=== PATIENT | male | born 1935 | race Caucasian/White ===

== ENCOUNTER 2017-11-09 20:27 | Inpatient (IN) | payer MEDICARE, MEDICAID ==
[~2017-11-09] VITALS: Ht 172.7 cm; Wt 80.9 kg
[2017-11-09] MEDS ORDERED: morphine 4 MG/ML inj SYRINge IV ONE (20:40)
[2017-11-09] MEDS ORDERED: ondansetron/PF 4mg/2ml inj IV ONE (20:40)
[2017-11-09] MEDS ORDERED: labetalol 20mg/4ml (5mg/ml) syringe IV ONE (20:45)
[2017-11-09 20:58] LABS: BASOPHILS % (AUTO) 0.4 % (0-1); EOSINOPHILS # (AUTO) 0.1 X10'3 (0-0.9); EOSINOPHILS % (AUTO) 1.8 % (0-6); HEMATOCRIT 40.9 % (42.0-52.0); HEMOGLOBIN 13.7 g/dl (14.0-17.9); LYMPHOCYTES # (AUTO) 0.9 X10'3 (1.1-4.8); LYMPHOCYTES % (AUTO) 11.7 % (21-51); MEAN CORPUSCULAR HEMOGLOBIN 32.1 PG (27.0-31.0); MEAN CORPUSCULAR HGB CONC 33.6 % (33.0-36.5); MEAN CORPUSCULAR VOLUME 95.5 FL (78-98); MEAN PLATELET VOLUME 7.9 FL (7.4-10.4); MONOCYTES # (AUTO) 0.6 X10'3 (0-0.9); MONOCYTES % (AUTO) 7.1 % (2-12); NEUTROPHILS # (AUTO) 6.4 X10'3 (1.8-7.7); PLATELET COUNT 224 X10'3 (140-440); RED BLOOD COUNT 4.28 X10'6 (4.70-6.10); RED CELL DISTRIBUTION WIDTH 13.6 % (11.5-14.5); WHITE BLOOD COUNT 8.1 X10'3 (4.5-11.0)
[2017-11-09] MEDS: esmolol/sodium cl bag 250 ML IV SCH (21:09)
[2017-11-09 21:10] LABS: PARTIAL THROMBOPLASTIN TIME 27 SECONDS (22-32); PROTHROMBIN TIME 10.7 SECONDS (9.0-12.0)
[2017-11-09 21:14] LABS: ALBUMIN 3.6 G/DL (3.4-5.0); ALBUMIN/GLOBULIN RATIO 0.9 (1.1-1.5); ALKALINE PHOSPHATASE 115 IU/L (46-116); ANION GAP 8 (8-16); ASPARTATE AMINO TRANSFERASE 349 U/L (10-37); BILIRUBIN,TOTAL 1.5 MG/DL (0.1-1.0); BLOOD UREA NITROGEN 17 MG/DL (7-18); BUN/CREATININE RATIO 18.5 (5.4-32.0); CHLORIDE 105 MMOL/L (99-107); CREATININE 0.92 MG/DL (0.60-1.10); GLUCOSE 126 MG/DL (70-104); POTASSIUM 3.6 MMOL/L (3.5-5.1); SODIUM 143 MMOL/L (135-145); TOTAL CARBON DIOXIDE 30.1 MMOL/L (24-32); TOTAL PROTEIN 7.5 G/DL (6.4-8.2); eGFR 79 ML/MIN
[2017-11-09 21:40] LABS: ALANINE AMINOTRANSFERASE 155 U/L (12-78); LIPASE 8198 U/L (73-393)
[2017-11-09 22:24] LABS: CLARITY,URINE CLEAR (Clear); COLOR,URINE YELLOW (Yellow); GLUCOSE, URINE NEGATIVE (Neg); KETONES,URINE NEGATIVE (Neg); LEUKOCYTE ESTERASE ,URINE NEGATIVE (Neg); NITRITES, URINE NEGATIVE (Neg); OCCULT BLOOD,URINE NEGATIVE (Neg); PROTEIN,URINE 100 mg/dl (Neg)
[2017-11-09] MEDS ORDERED: hydrALAZINE 20mg/ml inj. IV ONE (22:25)
[2017-11-09 22:27] LABS: UA COLLECTION TYPE CLN CATCH MIDSTREAM
[2017-11-09 22:30] LABS: BACTERIA,URINE FEW /HPF (Neg); RBC,URINE 0-2 /HPF (0-2); SQUAMOUS EPITHELIAL CELL,UR FEW /LPF (FEW); WBC,URINE 0-4 /HPF (0-4)
[2017-11-09 22:31] LABS: MUCUS STRANDS FEW /LPF (Neg)
[2017-11-09] MEDS ORDERED: iohexol 350MG/ML 100ml bottle IV ONE (22:31)
[2017-11-09] MEDS ORDERED: DUTA0.5C14 (23:39)
[2017-11-09] MEDS ORDERED: ASPI-1053 PO (23:39)
[2017-11-09] MEDS ORDERED: HYDR-3965 PO (23:41)
[2017-11-09] MEDS ORDERED: CLOP75TA15 PO (23:41)
[2017-11-09] MEDS ORDERED: OXYB5TAB29 PO (23:44)
[2017-11-09] MEDS ORDERED: FLO0.4C PO (23:44)
[2017-11-09] MEDS ORDERED: TRAM50TA2 PO (23:44)
[2017-11-10] MEDS ORDERED: magnesium hydroxide 30ml (MOM) UD suspension PO PRN (00:10)
[2017-11-10] MEDS ORDERED: morphine 4 MG/ML inj SYRINge IV PRN ×2 (00:10)
[2017-11-10] MEDS ORDERED: mag hydrox/Alum hydrox/simeth 30ml oral suspension PO PRN (00:10)
[2017-11-10] MEDS ORDERED: ondansetron/PF 4mg/2ml inj IV PRN (00:10)
[2017-11-10] MEDS ORDERED: acetaminophen 325mg tablet PO PRN ×2 (00:10)
[2017-11-10] MEDS ORDERED: HYDROcodone/acetaminophen 5mg/325mg tablet PO PRN (00:10)
[2017-11-10] MEDS ORDERED: DEXL60CA3 PO (00:19)
[2017-11-10] MEDS ORDERED: PRAV20TA4 PO (00:19)
[2017-11-10 01:20] VITALS: BP 136/77
[2017-11-10] MEDS: normal saline 1000ml 1,000 ML IV SCH ×3 (01:27→22:05)
[2017-11-10] MEDS: HYDROcodone/acetaminophen 10/325mg tab PO PRN ×3 (01:28→19:12)
[2017-11-10] MEDS ORDERED: HYDR-568 PO (01:33)
[2017-11-10] MEDS ORDERED: NITR0.4T51 SL (01:36)
[2017-11-10 04:30] VITALS: BP 111/58
[2017-11-10] MEDS ORDERED: pneumococcal 23-VAL P-sac vacc 25 mcg/0.5ml vial IMVAC ONE (06:05)
[2017-11-10] MEDS: esmolol/sodium cl bag 250 ML IV SCH (07:02)
[2017-11-10 08:00] VITALS: BP 132/63
[2017-11-10] MEDS: clopidogrel 75mg tablet PO SCH (08:01)
[2017-11-10] MEDS: tamsulosin 0.4mg capsule PO SCH (08:01)
[2017-11-10] MEDS: aspirin 81mg tablet.DR PO SCH (08:01)
[2017-11-10] MEDS: oxybutynin 5mg tablet PO SCH ×2 (08:01→19:07)
[2017-11-10] MEDS: enoxaparin 40mg/0.4ml syringe SUBCUT SCH (08:04)
[2017-11-10 11:15] VITALS: BP 136/73
[2017-11-10 16:11] LABS: CHOLESTEROL 84 MG/DL (0-200); HDL CHOLESTEROL 58 MG/DL (35-60); LDL CHOLESTEROL 26 MG/DL (50-100); TRIGLYCERIDES 28 MG/DL (20-135)
[2017-11-10 16:52] LABS: CHOL/HDL RATIO 1.5 (0.00-4.99)
[2017-11-10 20:00] VITALS: BP 126/70
[2017-11-11] VITALS: BP 127/64
[2017-11-11] MEDS: HYDROcodone/acetaminophen 10/325mg tab PO PRN ×2 (04:47→17:48)
[2017-11-11 05:15] LABS: BASOPHILS % (AUTO) 0.3 % (0-1); EOSINOPHILS # (AUTO) 0.1 X10'3 (0-0.9); EOSINOPHILS % (AUTO) 1.4 % (0-6); HEMATOCRIT 36.9 % (42.0-52.0); HEMOGLOBIN 12.6 g/dl (14.0-17.9); LYMPHOCYTES # (AUTO) 0.5 X10'3 (1.1-4.8); MEAN PLATELET VOLUME 8.1 FL (7.4-10.4); MONOCYTES # (AUTO) 0.5 X10'3 (0-0.9); MONOCYTES % (AUTO) 8.8 % (2-12); NEUTROPHILS % (AUTO) 81.5 % (42-75); PLATELET COUNT 181 X10'3 (140-440); RED BLOOD COUNT 3.93 X10'6 (4.70-6.10); RED CELL DISTRIBUTION WIDTH 14.2 % (11.5-14.5); WHITE BLOOD COUNT 6.2 X10'3 (4.5-11.0)
[2017-11-11] MEDS: normal saline 1000ml 1,000 ML IV SCH ×4 (06:10→18:22)
[2017-11-11 06:17] LABS: ALBUMIN 2.8 G/DL (3.4-5.0); ANION GAP 8 (8-16); BLOOD UREA NITROGEN 9 MG/DL (7-18); BUN/CREATININE RATIO 10.1 (5.4-32.0); CALCIUM 8.3 MG/DL (8.5-10.1); CHLORIDE 105 MMOL/L (99-107); CHOL/HDL RATIO 1.9 (0.00-4.99); CHOLESTEROL 97 MG/DL (0-200); CREATININE 0.89 MG/DL (0.60-1.10); GLUCOSE 93 MG/DL (70-104); HDL CHOLESTEROL 51 MG/DL (35-60); LDL CHOLESTEROL 33 MG/DL (50-100); POTASSIUM 3.5 MMOL/L (3.5-5.1); SODIUM 140 MMOL/L (135-145); TOTAL CARBON DIOXIDE 26.7 MMOL/L (24-32); TRIGLYCERIDES 46 MG/DL (20-135); eGFR 82 ML/MIN
[2017-11-11 06:55] VITALS: BP 120/52
[2017-11-11] MEDS: clopidogrel 75mg tablet PO SCH (07:43)
[2017-11-11] MEDS: oxybutynin 5mg tablet PO SCH ×2 (07:44→19:11)
[2017-11-11] MEDS: aspirin 81mg tablet.DR PO SCH (07:45)
[2017-11-11] MEDS: tamsulosin 0.4mg capsule PO SCH (07:45)
[2017-11-11] MEDS: enoxaparin 40mg/0.4ml syringe SUBCUT SCH (07:46)
[2017-11-11 10:02] LABS: LIPASE 394 U/L (73-393)
[2017-11-11 11:21] VITALS: BP 152/73
[2017-11-11 19:00] VITALS: BP 161/80
[2017-11-11 19:38] VITALS: BP 150/64
[2017-11-11] MEDS ORDERED: atorvastatin 10mg tablet PO SCH (21:00)
[2017-11-11 23:47] VITALS: BP 146/81
[2017-11-12] MEDS: HYDROcodone/acetaminophen 10/325mg tab PO PRN ×2 (02:55→12:22)
[2017-11-12] MEDS: normal saline 1000ml 1,000 ML IV SCH ×2 (02:55→13:40)
[2017-11-12 05:21] LABS: BASOPHILS % (AUTO) 0.7 % (0-1); EOSINOPHILS # (AUTO) 0.2 X10'3 (0-0.9); EOSINOPHILS % (AUTO) 2.7 % (0-6); HEMATOCRIT 37.7 % (42.0-52.0); HEMOGLOBIN 12.8 g/dl (14.0-17.9); LYMPHOCYTES # (AUTO) 0.5 X10'3 (1.1-4.8); LYMPHOCYTES % (AUTO) 9.5 % (21-51); MEAN CORPUSCULAR HEMOGLOBIN 31.9 PG (27.0-31.0); MEAN CORPUSCULAR HGB CONC 33.9 % (33.0-36.5); MEAN CORPUSCULAR VOLUME 94.2 FL (78-98); MEAN PLATELET VOLUME 8.3 FL (7.4-10.4); MONOCYTES # (AUTO) 0.6 X10'3 (0-0.9); MONOCYTES % (AUTO) 11.3 % (2-12); NEUTROPHILS # (AUTO) 4.3 X10'3 (1.8-7.7); NEUTROPHILS % (AUTO) 75.8 % (42-75); PLATELET COUNT 192 X10'3 (140-440); RED BLOOD COUNT 4.01 X10'6 (4.70-6.10); RED CELL DISTRIBUTION WIDTH 13.8 % (11.5-14.5); WHITE BLOOD COUNT 5.7 X10'3 (4.5-11.0)
[2017-11-12 05:40] LABS: ALBUMIN 2.8 G/DL (3.4-5.0); ANION GAP 11 (8-16); BLOOD UREA NITROGEN 6 MG/DL (7-18); BUN/CREATININE RATIO 8.5 (5.4-32.0); CALCIUM 8.5 MG/DL (8.5-10.1); CHLORIDE 106 MMOL/L (99-107); CREATININE 0.71 MG/DL (0.60-1.10); GLUCOSE 97 MG/DL (70-104); LIPASE 155 U/L (73-393); POTASSIUM 3.1 MMOL/L (3.5-5.1); SODIUM 141 MMOL/L (135-145); TOTAL CARBON DIOXIDE 24.4 MMOL/L (24-32); eGFR > 90 ML/MIN
[2017-11-12 06:58] VITALS: BP 131/80
[2017-11-12] MEDS ORDERED: traMADol 50MG tablet PO PRN (08:15)
[2017-11-12] MEDS: aspirin 81mg tablet.DR PO SCH (08:34)
[2017-11-12] MEDS: clopidogrel 75mg tablet PO SCH (08:35)
[2017-11-12] MEDS: tamsulosin 0.4mg capsule PO SCH (08:35)
[2017-11-12] MEDS: oxybutynin 5mg tablet PO SCH (08:35)
[2017-11-12] MEDS: enoxaparin 40mg/0.4ml syringe SUBCUT SCH (08:36)
[2017-11-12] MEDS ORDERED: potassium Cl 40MEQ/NS 500ml 500 ML IV PRN ×2 (08:50)
[2017-11-12] MEDS ORDERED: magnesium Cl slow-release 64mg tablet PO PRN (08:50)
[2017-11-12] MEDS ORDERED: potassium Cl 20 mEq SR tablet PO PRN ×2 (08:50)
[2017-11-12 09:03] LABS: ALANINE AMINOTRANSFERASE 134 U/L (12-78); ALBUMIN/GLOBULIN RATIO 0.8 (1.1-1.5); ALKALINE PHOSPHATASE 138 IU/L (46-116); ASPARTATE AMINO TRANSFERASE 53 U/L (10-37); BILIRUBIN,DIRECT 0.6 MG/DL (0-0.3); BILIRUBIN,TOTAL 1.4 MG/DL (0.1-1.0); TOTAL PROTEIN 6.5 G/DL (6.4-8.2)
[2017-11-12 12:00] VITALS: BP 154/85
== END 2017-11-12 15:40 | disposition home or self-care (01) | DRG 439 ==
LOC: ER 20:27 → ED HOLD 11-10 00:10 → SUR 3N 11-10 01:00 → UNDODISIN 11-12 15:15
PROVIDERS: ADMIT Hospitalist; ATTEND Family Medicine
PROC: B32T1ZZ Computerized Tomography (CT Scan) of Left Pulmonary Artery using Low Osmolar Contrast (ICD-10-PCS; principal; 2017-11-09)
PROC: B3201ZZ Computerized Tomography (CT Scan) of Thoracic Aorta using Low Osmolar Contrast (ICD-10-PCS; 2017-11-09)
PROC: B32S1ZZ Computerized Tomography (CT Scan) of Right Pulmonary Artery using Low Osmolar Contrast (ICD-10-PCS; 2017-11-09)
DX: K85.90 Acute pancreatitis without necrosis or infection, unspecified (principal); J98.11 Atelectasis; I71.4 Abdominal aortic aneurysm, without rupture; D64.9 Anemia, unspecified; R74.0 Nonspecific elevation of levels of transaminase and lactic acid dehydrogenase [LDH]; E78.00 Pure hypercholesterolemia, unspecified; E87.6 Hypokalemia; G89.29 Other chronic pain; I25.10 Atherosclerotic heart disease of native coronary artery without angina pectoris; I25.2 Old myocardial infarction; Z95.1 Presence of aortocoronary bypass graft; Z88.1 Allergy status to other antibiotic agents; Z79.02 Long term (current) use of antithrombotics/antiplatelets; Z79.899 Other long term (current) drug therapy; Z87.891 Personal history of nicotine dependence; Z23 Encounter for immunization
CPT/HCPCS: 36415; 71045; 71275; 76700; 80048; 80053; 80061; 80076; 81001; 83690; 84484; 85025; 85610; 85730; 87070; 90732; 93005; 96374; 96375; 99291; J0360; J1650; J2270; J2405; J3490; J7030; Q9967

== ENCOUNTER 2018-06-01 01:21 | Inpatient (IN) | payer MEDICARE, MEDICAID | END 2018-06-04 16:00 | disposition home or self-care (01) | LOC: ER 01:21 → ED HOLD 04:41 → SUR 3N 05:10 | DX: K85.90 Acute pancreatitis without necrosis or infection, unspecified (principal); K83.09 Other cholangitis; I71.4 Abdominal aortic aneurysm, without rupture; I25.10 Atherosclerotic heart disease of native coronary artery without angina pectoris ==

== ENCOUNTER 2020-06-29 15:54 | Emergency (ER) | payer MEDICARE, MEDICAID ==
[~2020-06-29] VITALS: Ht 172.7 cm; Wt 79.5 kg
[~2020-06-29 15:54] MED LIST: ASPI-1053 PO; CLOP75TA15 PO; DEXL60CA3 PO; DUTA0.5C17; FLO0.4C PO; HYDR-4384 PO; NITR0.4T51 SL; OXYB5TAB29 PO; POTA10TA15 PO; TRAM50TA2 PO
[2020-06-29 17:07] LABS: BASOPHILS # (AUTO) 0.1 X10'3 (0-0.2); BASOPHILS % (AUTO) 1.6 % (0-1); EOSINOPHILS # (AUTO) 0.2 X10'3 (0-0.9); EOSINOPHILS % (AUTO) 3.3 % (0-6); HEMOGLOBIN 14.7 g/dl (14.0-17.9); LYMPHOCYTES # (AUTO) 1.4 X10'3 (1.1-4.8); MEAN CORPUSCULAR HEMOGLOBIN 31.2 PG (27.0-31.0); MEAN CORPUSCULAR HGB CONC 33.5 g/dL (33.0-36.5); MEAN CORPUSCULAR VOLUME 93.2 FL (78-98); MEAN PLATELET VOLUME 7.7 FL (7.4-10.4); MONOCYTES # (AUTO) 0.6 X10'3 (0-0.9); MONOCYTES % (AUTO) 9.4 % (2-12); NEUTROPHILS # (AUTO) 4.3 X10'3 (1.8-7.7); NEUTROPHILS % (AUTO) 64.7 % (42-75); PLATELET COUNT 241 X10'3 (140-440); RED BLOOD COUNT 4.72 X10'6 (4.70-6.10); WHITE BLOOD COUNT 6.7 X10'3 (4.5-11.0)
[2020-06-29 17:10] LABS: ALANINE AMINOTRANSFERASE 24 U/L (12-78); ALBUMIN 3.5 G/DL (3.4-5.0); ALBUMIN/GLOBULIN RATIO 0.9 (1.1-1.5); ALKALINE PHOSPHATASE 57 IU/L (46-116); ANION GAP 7 (8-16); ASPARTATE AMINO TRANSFERASE 18 U/L (10-37); BILIRUBIN,TOTAL 0.8 MG/DL (0.1-1.0); BLOOD UREA NITROGEN 13 MG/DL (7-18); BUN/CREATININE RATIO 13.5 (5.4-32.0); CALCIUM 9.5 MG/DL (8.5-10.1); CHLORIDE 103 MMOL/L (99-107); CREATININE 0.96 MG/DL (0.60-1.10); GLUCOSE 99 MG/DL (70-104); SODIUM 137 MMOL/L (135-145); TOTAL CARBON DIOXIDE 27.1 MMOL/L (24-32); TOTAL PROTEIN 7.5 G/DL (6.4-8.2); eGFR 75 ML/MIN
[2020-06-29 17:50] VITALS: BP 153/86
== END 2020-06-29 17:53 | disposition home or self-care (01) ==
LOC: ER 15:55
DX: R07.89 Other chest pain (principal); M54.89 Other dorsalgia; I25.10 Atherosclerotic heart disease of native coronary artery without angina pectoris; E78.00 Pure hypercholesterolemia, unspecified; Z98.890 Other specified postprocedural states; Z88.1 Allergy status to other antibiotic agents; Z79.899 Other long term (current) drug therapy
CPT/HCPCS: 36415; 71045; 80053; 83880; 84484; 85025; 93005; 99285

== ENCOUNTER 2023-04-05 12:00 | Inpatient (IN) | payer BC, MEDICAID ==
[~2023-04-05] VITALS: Ht 172.7 cm; Wt 72.1 kg
[~2023-04-05 12:00] MED LIST changes: -DUTA0.5C17; +DUTA0.5C36
[2023-04-05] MEDS ORDERED: aspirin 81mg, enteric-coated 1 TAB TABLET.DR PO ONE (12:05)
[2023-04-05 12:33] LABS: BASOPHILS # (AUTO) 0.1 X10'3 (0-0.2); BASOPHILS % (AUTO) 1.3 % (0-1); EOSINOPHILS # (AUTO) 0.2 X10'3 (0-0.9); HEMOGLOBIN 13.9 g/dl (14.0-17.9); LYMPHOCYTES # (AUTO) 1.2 X10'3 (1.1-4.8); LYMPHOCYTES % (AUTO) 15.5 % (21-51); MEAN CORPUSCULAR HEMOGLOBIN 31.3 PG (27.0-31.0); MEAN PLATELET VOLUME 8.6 FL (7.4-10.4); MONOCYTES # (AUTO) 0.7 X10'3 (0-0.9); MONOCYTES % (AUTO) 9.1 % (2-12); NEUTROPHILS # (AUTO) 5.6 X10'3 (1.8-7.7); NEUTROPHILS % (AUTO) 72.1 % (42-75); PLATELET COUNT 234 X10'3 (140-440); RED BLOOD COUNT 4.42 X10'6 (4.70-6.10); RED CELL DISTRIBUTION WIDTH 15.1 % (11.5-14.5); WHITE BLOOD COUNT 7.7 X10'3 (4.5-11.0)
[2023-04-05 13:18] LABS: ALANINE AMINOTRANSFERASE 12 U/L (12-78); ALBUMIN 3.6 G/DL (3.4-5.0); ALKALINE PHOSPHATASE 66 IU/L (46-116); ANION GAP 11 (8-16); ASPARTATE AMINO TRANSFERASE 16 U/L (10-37); BILIRUBIN,TOTAL 0.6 MG/DL (0.1-1.0); BLOOD UREA NITROGEN 13 MG/DL (7-18); BUN/CREATININE RATIO 10.9 (10.0-20.0); CALCIUM 9.1 MG/DL (8.5-10.1); CHLORIDE 102 MMOL/L (99-107); CREATININE 1.19 MG/DL (0.60-1.10); GLUCOSE 117 MG/DL (70-104); POTASSIUM 3.8 MMOL/L (3.5-5.1); SODIUM 136 MMOL/L (135-145); TOTAL CARBON DIOXIDE 23.5 MMOL/L (24-32); TOTAL PROTEIN 7.3 G/DL (6.4-8.2); eCRCL 42 ML/MIN; eGFR 58 ML/MIN
[2023-04-05 13:25] LABS: PRO BRAIN NATRIURETIC PEPTIDE 1346 PG/ML (0-450)
[2023-04-05] MEDS ORDERED: ondansetron/PF 4mg/2ml inj IV PRN (14:20)
[2023-04-05] MEDS ORDERED: HYDROcodone/acetaminophen 10/325mg tab PO PRN (14:20)
[2023-04-05] MEDS ORDERED: potassium Cl 40MEQ/1/2NS 520ml 520 ML IV PRN (14:20)
[2023-04-05] MEDS ORDERED: potassium Cl 20 mEq SR tablet PO PRN ×2 (14:20)
[2023-04-05] MEDS ORDERED: HYDROcodone/acetaminophen 5mg/325mg tablet PO PRN (14:20)
[2023-04-05] MEDS ORDERED: magnesium 2GM in 50ml NS 50 ML IV PRN (14:20)
[2023-04-05] MEDS ORDERED: acetaminophen 325mg tablet PO PRN ×2 (14:20)
[2023-04-05] MEDS ORDERED: magnesium Cl slow-release 64mg tablet PO PRN (14:20)
[2023-04-05] MEDS ORDERED: magnesium 4gm in 100ml NS 100 ML IV PRN (14:20)
[2023-04-05] MEDS ORDERED: morphine 2 MG/ML inj. syringe IV PRN ×2 (14:20)
--- NOTE | 2023-04-05 16:09 | NUR ---
ULTRASOUND IN WITH PATIENT. PT IS RESTING COMFORTABLY WITH NO COMPLAINTS AT THIS TIME. WAITING ON ROOM FOR HIS ADMISSION.
[2023-04-05] MEDS ORDERED: LOSA25TA41 PO (17:14)
[2023-04-05] MEDS ORDERED: OMEP20CA16 PO (17:14)
[2023-04-05] MEDS ORDERED: FINA5TAB11 PO (17:14)
[2023-04-05] MEDS ORDERED: enoxaparin 40mg/0.4ml syringe SQ SCH (20:00)
[2023-04-05 21:45] VITALS: BP 160/86; PULSE 88; RESP 18; TEMP 97.7; O2SAT 95
[2023-04-05 22:00] VITALS: BP 161/80; PULSE 62; RESP 19; TEMP 97.6; O2SAT 97
[2023-04-06] VITALS (10 sets, daily range): BP systolic 127–152; BP diastolic 68–86; PULSE 64–88; RESP 16–21; TEMP 97–97.6; O2SAT 96–99
[2023-04-06 07:08] LABS: BASOPHILS # (AUTO) 0.1 X10'3 (0-0.2); EOSINOPHILS # (AUTO) 0.3 X10'3 (0-0.9); EOSINOPHILS % (AUTO) 4.4 % (0-6); HEMATOCRIT 40.6 % (42.0-52.0); HEMOGLOBIN 13.5 g/dl (14.0-17.9); LYMPHOCYTES # (AUTO) 1.4 X10'3 (1.1-4.8); LYMPHOCYTES % (AUTO) 21.9 % (21-51); MEAN CORPUSCULAR HEMOGLOBIN 31.1 PG (27.0-31.0); MEAN CORPUSCULAR HGB CONC 33.2 g/dL (33.0-36.5); MEAN CORPUSCULAR VOLUME 93.7 FL (78-98); MEAN PLATELET VOLUME 8.3 FL (7.4-10.4); MONOCYTES # (AUTO) 0.6 X10'3 (0-0.9); NEUTROPHILS # (AUTO) 3.9 X10'3 (1.8-7.7); NEUTROPHILS % (AUTO) 62.7 % (42-75); PLATELET COUNT 209 X10'3 (140-440); RED BLOOD COUNT 4.34 X10'6 (4.70-6.10); RED CELL DISTRIBUTION WIDTH 14.7 % (11.5-14.5); WHITE BLOOD COUNT 6.2 X10'3 (4.5-11.0)
[2023-04-06 07:22] LABS: ALANINE AMINOTRANSFERASE 16 U/L (12-78); ALBUMIN/GLOBULIN RATIO 0.9 (1.1-1.5); ALKALINE PHOSPHATASE 61 IU/L (46-116); ANION GAP 6 (8-16); ASPARTATE AMINO TRANSFERASE 18 U/L (10-37); BILIRUBIN,TOTAL 1.3 MG/DL (0.1-1.0); BLOOD UREA NITROGEN 9 MG/DL (7-18); BUN/CREATININE RATIO 8.7 (10.0-20.0); CALCIUM 8.9 MG/DL (8.5-10.1); CHLORIDE 104 MMOL/L (99-107); CREATININE 1.03 MG/DL (0.60-1.10); GLUCOSE 94 MG/DL (70-104); POTASSIUM 3.8 MMOL/L (3.5-5.1); SODIUM 139 MMOL/L (135-145); TOTAL CARBON DIOXIDE 29.4 MMOL/L (24-32); TOTAL PROTEIN 6.5 G/DL (6.4-8.2); eCRCL 51 ML/MIN; eGFR 69 ML/MIN
[2023-04-06] MEDS ORDERED: pantoprazole 40mg Tablet.DR PO SCH (08:00)
[2023-04-06] MEDS ORDERED: losartan 25mg tablet PO SCH (08:00)
[2023-04-06] MEDS ORDERED: finasteride 5mg tablet PO SCH (08:00)
[2023-04-06] MEDS ORDERED: tamsulosin 0.4mg capsule PO SCH (08:00)
[2023-04-06] MEDS ORDERED: clopidogrel 75mg tablet PO SCH (08:00)
[2023-04-06] MEDS ORDERED: OXYBUTYNIN CHLORIDE 5 MG PO SCH (08:00)
[2023-04-06] MEDS ORDERED: regadenoson 0.4mg/5ml syringe IV ONE (09:35)
[2023-04-06] MEDS ORDERED: aminophylline inj. 0 ML IV ONE (09:43)
--- NOTE | 2023-04-06 13:25 | NUR ---
Discharge instructions discussed with patient. All medications and follow up appointments discussed. All questions answered. Pt states he understands all instructions. 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 Pt will leave unit via wheelchair to a private car with family.
== END 2023-04-06 13:45 | disposition home or self-care (01) | DRG 313 ==
LOC: ER 12:00 → ED HOLD 14:32 → PCU 3S 21:45
PROVIDERS: ADMIT Internal Medicine; ATTEND Internal Medicine
PROC: 4A02XM4 Measurement of Cardiac Total Activity, External Approach (ICD-10-PCS; principal; 2023-04-06)
PROC: 3E073KZ Introduction of Other Diagnostic Substance into Coronary Artery, Percutaneous Approach (ICD-10-PCS; 2023-04-06)
DX: R07.89 Other chest pain (principal); I25.10 Atherosclerotic heart disease of native coronary artery without angina pectoris; E78.00 Pure hypercholesterolemia, unspecified; I50.9 Heart failure, unspecified; I25.2 Old myocardial infarction; Z88.0 Allergy status to penicillin; Z79.899 Other long term (current) drug therapy; Z95.1 Presence of aortocoronary bypass graft
CPT/HCPCS: 36415; 71045; 78452; 80053; 83735; 83880; 84484; 85025; 87081; 87811; 93017; 93306; 97161; 97530; 97535; 99285; A9500; J0280; J1650; J2785

== ENCOUNTER 2024-08-08 03:02 | Emergency (ER) | payer BC, MEDICAID ==
[~2024-08-08] VITALS: Ht 170.2 cm; Wt 70.9 kg
[~2024-08-08 03:02] MED LIST changes: -CLOP75TA15 PO; +CLOP75TA34 PO; -DEXL60CA3 PO; -DUTA0.5C36; +FINA5TAB11 PO; +FURO-150 PO; -HYDR-4384 PO; +ISOS30TA84 PO; +LOP25T PO; +LOSA50TA64 PO; +OMEP20CA16 PO; +OXYB10TA30 PO; -OXYB5TAB29 PO; -POTA10TA15 PO; +ROSU20TA98 PO; -TRAM50TA2 PO
[2024-08-08 03:43] LABS: BASOPHILS % (AUTO) 0.5 % (0-1); EOSINOPHILS % (AUTO) 0.1 % (0-6); HEMATOCRIT 33.2 % (42.0-52.0); HEMOGLOBIN 11.3 g/dl (14.0-17.9); LYMPHOCYTES # (AUTO) 0.4 X10'3 (1.1-4.8); LYMPHOCYTES % (AUTO) 3.7 % (21-51); MEAN CORPUSCULAR HEMOGLOBIN 31.5 PG (27.0-31.0); MEAN CORPUSCULAR HGB CONC 34.2 g/dL (33.0-36.5); MEAN CORPUSCULAR VOLUME 92.4 FL (78-98); MEAN PLATELET VOLUME 7.9 FL (7.4-10.4); MONOCYTES # (AUTO) 0.8 X10'3 (0-0.9); MONOCYTES % (AUTO) 7.8 % (2-12); NEUTROPHILS # (AUTO) 8.4 X10'3 (1.8-7.7); NEUTROPHILS % (AUTO) 87.9 % (42-75); PLATELET COUNT 243 X10'3 (140-440); RED BLOOD COUNT 3.59 X10'6 (4.70-6.10); WHITE BLOOD COUNT 9.6 X10'3 (4.5-11.0)
[2024-08-08 04:06] LABS: ALBUMIN 2.5 G/DL (3.4-5.0); BLOOD UREA NITROGEN 12 MG/DL (7-18); CALCIUM 8.7 MG/DL (8.5-10.1); GLUCOSE 143 MG/DL (70-104); PRO BRAIN NATRIURETIC PEPTIDE 3384 PG/ML (0-450); SODIUM 139 MMOL/L (135-145); eCRCL 50 ML/MIN; eGFR 71 ML/MIN
[2024-08-08 04:08] LABS: ANION GAP 7 (8-16); CHLORIDE 104 MMOL/L (99-107)
[2024-08-08 04:09] LABS: POTASSIUM 2.8 MMOL/L (3.5-5.1)
[2024-08-08] MEDS: pantoprazole 40 MG vial IV ONE (04:21)
[2024-08-08] MEDS: famotidine/PF 10 mg/ml inj IV ONE (04:22)
[2024-08-08] MEDS: LIDOcaine 2% Viscous 15ml cup MM ONE (04:22)
[2024-08-08] MEDS: mag hydrox/Alum hydrox/simeth 30ml oral suspension PO ONE (04:22)
[2024-08-08] MEDS: ondansetron/PF 4mg/2ml inj IV ONE (04:35)
[2024-08-08] MEDS: potassium Cl 20 mEq SR tablet PO STA (04:36)
[2024-08-08] MEDS ORDERED: PANT-47 PO (05:49)
[2024-08-08] MEDS ORDERED: POTA-207 PO (06:01)
[2024-08-08 06:42] VITALS: BP 116/55; PULSE 73; RESP 16; TEMP 99.5; O2SAT 98
== END 2024-08-08 06:49 | disposition home or self-care (01) ==
LOC: ER 03:02
DX: K29.60 Other gastritis without bleeding (principal); E87.6 Hypokalemia; I25.10 Atherosclerotic heart disease of native coronary artery without angina pectoris; E78.00 Pure hypercholesterolemia, unspecified; I25.2 Old myocardial infarction; Z88.0 Allergy status to penicillin; Z79.899 Other long term (current) drug therapy; Z95.0 Presence of cardiac pacemaker; Z95.1 Presence of aortocoronary bypass graft
CPT/HCPCS: 36415; 71045; 80048; 83880; 84484; 85025; 93005; 96365; 96375; 99285; J2405; J2470; J3490

== ENCOUNTER 2025-01-04 16:59 | Inpatient (IN) | payer BC, MEDICAID ==
[~2025-01-04] VITALS: Ht 167.6 cm; Wt 65.9 kg
[~2025-01-04 16:59] MED LIST changes: -FLO0.4C PO; -FURO-150 PO; -OMEP20CA16 PO; -OXYB10TA30 PO; +PANT-47 PO; -ROSU20TA98 PO; +TAMS-55 PO
--- NOTE | 2025-01-04 17:53 | Physician Documentation ---
History of Present Illness General Chief Complaint: Mechanical Fall Stated Complaint: BACK PAIN Time Seen by MD: 17:28 Primary Medical Doctor: Dr. Melendez History of Present Illness Initial Comments The patient is an 89-year-old male who has chronic low back pain who takes [place] for his chronic low back pain presents with right-sided low back pain. Patient states he was driving in the car today around noon and he developed tingling in both legs as well as pain that radiated down his right leg he states the pain is worse when with movement it is similar to pain he has had in the past. The patient states he has difficulty ambulating secondary to the pain. The patient's pain use stating it is 10/10 sharp and radiates down his left leg he also states he has had numbness and tingling to both legs. Patient denies any bowel or bladder issues and denies any recent trauma. He states he has a history of spinal stenosis. His symptoms are moderate and persistent he takes [place] he believes 09/14/2024 chronically for his back pain. The patient states he fell at home several hours after the pain started he denies any head strike. Medication Reconciliation Allergies: Coded Allergies: amoxicillin (Verified Allergy, Unknown, RASH, 01/04/25) Scheduled Clopidogrel Bisulfate (Clopidogrel), 75 MG PO DAILY Finasteride (Finasteride), 1 TAB PO DAILY, (Reported) Isosorbide Mononitrate (Isosorbide Mononitrate Er), 90 MG PO DAILY Metoprolol Tartrate* (Lopressor tablet*), 25 MG PO Q12H Omeprazole (Omeprazole), 1 CAP PO DAILY, (Reported) Oxybutynin Chloride (Ditropan Xl), 1 TAB PO DAILY, (Reported) Tamsulosin Hcl* (Flomax*), 2 CAP PO DAILY, (Reported) Scheduled PRN Nitroglycerin SL* (Nitrostat SL*), 1 TAB SL Q5MIN PRN for Chest pain Q5min PRNx3-call MD, (Reported) Miscellaneous Medications Aspirin (Keren Chewable), 81 MG PO, (Reported) Discontinued Medications Losartan Potassium (Losartan Potassium), 50 MG PO DAILY Discontinued Reason: patient no longer taking Pantoprazole Sodium (PROTONIX tablet), 1 TAB PO DAILY Discontinued Reason: patient no longer taking Past Medical History Past Medical History: *CARDIOVASCULAR*, Coronary Artery Disease, High Cholesterol, Myocardial Infarction Past Surgical History: angioplasty, coronary bypass surgery, pacemaker Other Past Surgical History: Aortic aneurysm surgery (April 2022) Review of Systems All Other Systems at this time: Reviewed and Negative Physical Exam Physical Exam Vital Signs: Temperature: 98.1, Source: Oral, Heart Rate: 66, Respiratory Rate: 14, BP: 136/65, Pulse Oximetry: 96, Weight: 65.910 Oxygen Flow Rate: 0 Physical Exam VITALS: Reviewed and as above. GENERAL: Alert, no apparent distress. HEENT: Normocephalic, atraumatic, PERRL, EOMI, dry mucosa, no erythema RESPIRATORY: Lungs clear, normal breath sounds, no respiratory distress. CHEST: No accessory muscle use, no retractions CV: Regular rate, rhythm, no edema, no murmur, No: JVD GI: Soft, non-tender, bowels sounds present, no rebound, guarding, or rigidity BACK: No CVA tenderness, or swelling MUSCULOSKELETAL: The patient is able to lift his right leg off of the bed he does have slightly decreased strength in the right leg he has 4+ out of five strength in the right lower extremity there was no deficits appreciated in his upper extremities both extremities are sensate SKIN: Warm and dry, no rash NEURO: Oriented x4, has a above patient has 4/5 strength in the right lower ext remity he has pain with range of motion of the right hip PSYCH: Normal mood and affect, no agitation Progress Progress Note 1829: Patient report was received from Dr. Bryant. Patient examined. Reviewed CT results with patient. He complains of pain. Takes Groveland at home. States he has been taking it for over 20 years. He has not received any since he been here. A dose of Groveland 10/325 was ordered. After he receives the [place] we will attempt to gait test. If he is unable to ambulate he will need a lumbar spine MRI. 1939: PATIENT UP AND AMBULATORY WITHOUT ASSISTANCE. REPORTS BACK PAIN HAS SIG NIFICANTLY IMPROVED. 1754: Per nursing when patient came back from bathroom he was unable to ambulate and needed significant assistance to return to bed. Now states that he can't ambulate. Appreciates that this is an acute decompensation of his chronic back pain. States that it acutely worsened this AM. Pain radiates down both legs. No incontinence or urinary retention. Per Dr. Bryant if patient is unable to ambulate will require Lumbar Spine MRI. Ordered. Given his acute weakness he will be admitted for further eval and mgt. Case discussed with Dr. Mcmullen (machinist 2nd shift sup physician) Results/Orders Results/Orders Orders - SHAILESH BRYANT MD Ct Lumbar Spine (01/04/25 17:28) Completed Orders - SHAILESH BRYANT MD Ct Lumbar Spine (01/04/25 17:28) Vital Signs 01/04/25 01/04/25 01/04/25 01/04/25 17:05 17:22 18:38 19:13 Temp 98.1 Pulse 66 66 62 Resp 14 14 12 13 B/P (MAP) 136/65 136/65 (88) 105/54 (71) Pulse Ox 96 96 95 O2 Flow Rate 0 0 01/04/25 01/04/25 19:15 20:09 Pulse 60 Resp 18 12 B/P (MAP) 132/76 (94) Pulse Ox 98 Laboratory Tests Test 01/04/25 20:45 White Blood Count 7.2 Red Blood Count 3.72 L Hemoglobin 11.6 L Hematocrit 34.6 L Mean Corpuscular Volume 93.1 Mean Corpuscular Hemoglobin 31.1 H Mean Corpuscular Hemoglobin Concent 33.4 Red Cell Distribution Width 15.0 H Platelet Count 163 Mean Platelet Volume 8.1 Neutrophils (%) (Auto) 62.6 Lymphocytes (%) (Auto) 24.7 Monocytes (%) (Auto) 9.5 Eosinophils (%) (Auto) 2.2 Basophils (%) (Auto) 1.0 Neutrophils # (Auto) 4.5 Lymphocytes # (Auto) 1.8 Monocytes # (Auto) 0.7 Eosinophils # (Auto) 0.2 Basophils # (Auto) 0.1 CBC Comment Sodium Level 144 Potassium Level 4.1 Chloride Level 109 H Carbon Dioxide Level 26.4 Anion Gap 9 Blood Urea Nitrogen 17 Creatinine 1.01 Estimated GFR/1.73 m2 70 BUN/Creatinine Ratio 16.8 Glucose Level 102 Hemoglobin A1c 5.6 Calcium Level 8.5 Albumin 2.9 L Triglycerides Level 174 H Cholesterol Level 143 LDL Cholesterol 67 HDL Cholesterol 47 Cholesterol/HDL Ratio 3.0 Chemistry Comments EKG/XRAY/CT/US/VASC/MRI Chest X-Ray : Additional Comments Patient: FISH,MINAL R Medical Record: [id number] [facility] : 1935, Age: 89 Sex: Male Location: [address] Patient Status: ADM IN Service Date/Time: 01/05/25/ Ordering Physician: GRACIELA VILLALTA DO Exam: CHEST,SINGLE VIEW CHEST RADIOGRAPH Indication: weakness/pacemaker Technique: Single frontal view of the chest was obtained COMPARISON: DI CHEST,SINGLE VIEW on DOS: 09/26/24, DI CHEST,SINGLE VIEW on DOS: 08/08/24, DI CHEST,SINGLE VIEW on DOS: 06/21/24, DI CHEST,SINGLE VIEW on DOS: 03/22/24, DI CHEST,SINGLE VIEW on DOS: 04/05/23 FINDINGS: Lines and Tubes: None. Left anterior chest wall cardiac pacing device. Lungs: Clear Pleura: No effusion. No pneumothorax. Cardiomediastinal contours: Unremarkable status post median sternotomy. Surgical clips noted. Bones: Unremarkable IMPRESSION: 1. No acute disease. Electronically Signed by:RAFFI LOPEZ MD Date & Time: 01/05/25 104 Dictated by: RAFFI LOPEZ MD Dictation date and time: 01/05/25 104 Primary Care Provider: NO PRIMARY CARE PROVIDER cc: GRACIELA IVLLALTA DO ~ CT : Impression Patient: MINAL WHITTEN Medical Record: [id number] [facility] : 1935, Age: 89 Sex: Male Location: ER Patient Status: REG ER Service Date/Time: 01/04/251727 Ordering Physician: SHAILESH BRYANT MD Exam: CT LUMBAR SPINE CT CT LUMBAR SPINE Date: 01/04/2025 05:33 PM History: back pain Comparison: CT CT ABDOMEN PELVIS on DOS: 09/26/24, CT ABDOMEN PELVIS on DOS: 06/01/18 TECHNIQUE: Multiple axial CT images of the lumbosacral spine were obtained using bone algorithm. Axial and coronal reformatting was done. Bone and soft tissue windows were reviewed. Radiation Dose Information: CT Dose: CTDI volume is 19 mGy. Dose-length product is 543 mGy*cm FINDINGS: No CT evidence of definite acute fracture, spinal dislocation, or significant appearing acute subluxation is seen. There is grade 1 anterolisthesis of L3 on L4 secondary to facet arthropathy. The visualized paraspinal soft tissues are grossly unremarkable. Severe degenerative changes throughout the lumbar spine. Prominent disc osteophyte complex at L3-L4 causing at least moderate to severe central canal stenosis and at least mild bilateral neural foraminal narrowing. Prominent disc osteophyte complex at L4-5 causing at least mild central canal stenosis and at least moderate bilateral neural foraminal narrowing Partially visualized is an aortic bi-iliac stent graft. IMPRESSION: 1. No definite CT evidence of acute fracture or dislocation of the bony lumbar spine. 2. Prominent disc osteophyte complex at L3-L4 causing at least moderate to severe central canal stenosis and at least mild bilateral neural foraminal narrowing. Consider MRI lumbar spine for further evaluation. 3. Prominent disc osteophyte complex at L4-5 causing at least mild central canal stenosis and at least moderate bilateral neural foraminal narrowing. 4. Grade 1 anterolisthesis of L3 on L4 secondary to facet arthropathy. All CT scans at this medical facility are performed using dose modulation techniques as appropriate to a performed exam including the following: Automated exposure control was utilized; adjustment of the MA and/or KV according to shelley ent size; and use of iterative reconstruction technique. Electronically Signed by:LIBERTY LAMBERT MD Date & Time: 01/04/251804 Dictated by: LIBERTY LAMBERT MD Dictation date and time: 01/04/251804 Primary Care Provider: NO PRIMARY CARE PROVIDER cc: SHAILESH BRYANT MD ~ Medical Decision Making Findings Patient presents for back pain. He has had back pain for many years and has known lumbar stenosis. He has no high-risk features such as incontinence or urinary retention. No current clinical suspicion for acute neurologic emergency. He was given [place] 10. Unable to ambulate and pain acutely worse. MRI ordered. Given his acute weakness, unable to ambulate an MRI was ordered and he will be admitted for further evaluation/management and physical therapy eval and treat. Departure Disposition: 09 ADMITTED INPATIENT Admitted to Inpatient Unit: to hospitalist Admission Level of Care: Med/Surg Impression: Primary Impression: Back pain Qualified Codes: M54.42 - Lumbago with sciatica, left side; M54.41 - Lumbago with sciatica, right side; G89.29 - Other chronic pain Additional Impression: Weakness Condition: Stable Discharge Instructions: Acute Back Pain, Adult Additional Instructions: CONTINUE TO TAKE YOUR NORCO PRESCRIBED. FOLLOW UP WITH YOUR PRIMARY CARE PROVIDER. RETURN FOR ANY NEW OR WORSENING SYMPTOMS. Recommend that you do not drive while taking [place]. Referrals: NO PRIMARY CARE PROVIDER (PCP) Education Educated: Patient Educated regarding: diagnosis, treatment, need for follow up Signature Scribe Signature: No scribe Attestation: The note accurately reflects work and decisions made by me.Deidre James NP 01/04/25 23:00 SHAILESH BRYANT MD Jan 04, 2025 17:53 DEIDRE KEENAN NP Jan 04, 2025 18:31
--- NOTE | 2025-01-04 18:07 | RADIOLOGY REPORT ---
CT CT LUMBAR SPINE Date: 01/04/2025 05:33 PM History: back pain Comparison: CT CT ABDOMEN PELVIS on DOS: 09/26/24, CT ABDOMEN PELVIS on DOS: 06/01/18 TECHNIQUE: Multiple axial CT images of the lumbosacral spine were obtained using bone algorithm. Axial and coron al reformatting was done. Bone and soft tissue windows were reviewed. Radiation Dose Information: CT Dose: CTDI volume is 19 mGy. Dose-length product is 543 mGy*cm FINDINGS: No CT evidence of definite acute fracture, spinal dislocation, or significant appearing acute subluxa tion is seen. There is grade 1 anterolisthesis of L3 on L4 secondary to facet arthropathy. The visualized paraspinal soft tissues are grossly unremarkable. Severe degenerative changes througho ut the lumbar spine. Prominent disc osteophyte complex at L3-L4 causing at least moderate to severe central canal stenosis and at least mild bilateral neural foraminal narrowing. Prominent disc osteophyte complex at L4-5 causing at least mild central canal stenosis and at least m oderate bilateral neural foraminal narrowing Partially visualized is an aortic bi-iliac stent graft. IMPRESSION: 1. No definite CT evidence of acute fracture or dislocation of the bony lumbar spine. 2. Prominent disc osteophyte complex at L3-L4 causing at least moderate to severe central canal steno sis and at least mild bilateral neural foraminal narrowing. Consider MRI lumbar spine for further joao luation. 3. Prominent disc osteophyte complex at L4-5 causing at least mild central canal stenosis and at leas t moderate bilateral neural foraminal narrowing. 4. Grade 1 anterolisthesis of L3 on L4 secondary to facet arthropathy. All CT scans at this medical facility are performed using dose modulation techniques as appropriate t o a performed exam including the following: Automated exposure control was utilized; adjustment of th e MA and/or KV according to patient size; and use of iterative reconstruction technique.
[2025-01-04] MEDS: HYDROcodone/acetaminophen 10/325mg tab PO ONE (18:38)
[2025-01-04 20:54] LABS: MEAN PLATELET VOLUME 8.1 FL (7.4-10.4); RED CELL DISTRIBUTION WIDTH 15.0 % (11.5-14.5)
[2025-01-04 21:02] LABS: CREATININE 1.01 MG/DL (0.60-1.10); TOTAL CARBON DIOXIDE 26.4 MMOL/L (24-32); eCRCL 47 ML/MIN; eGFR 70 ML/MIN
[2025-01-04] MEDS ORDERED: magnesium sulf-water 2g/50mL 50 ML IV PRN (22:45)
[2025-01-04] MEDS ORDERED: ondansetron/PF 4mg/2ml inj IV PRN (22:45)
[2025-01-04] MEDS ORDERED: magnesium Cl slow-release 64mg tablet PO PRN (22:45)
[2025-01-04] MEDS ORDERED: potassium Cl 20 mEq SR tablet PO PRN ×2 (22:45)
[2025-01-04] MEDS ORDERED: magnesium hydroxide 30ml (MOM) UD suspension PO PRN (22:45)
[2025-01-04] MEDS ORDERED: mag hydrox/Alum hydrox/simeth 30ml oral suspension PO PRN (22:45)
[2025-01-04] MEDS ORDERED: potassium Cl 40MEQ/1/2NS 520ml 520 ML IV PRN (22:45)
[2025-01-04] MEDS ORDERED: magnesium sulf-water 4G/100mL 100 ML IV PRN (22:45)
[2025-01-04 23:04] LABS: CHOL/HDL RATIO 3.0 (0.00-4.99); LDL CHOLESTEROL 67 MG/DL (50-100)
[2025-01-05] MEDS: HYDROcodone/acetaminophen 5mg/325mg tablet PO STA (00:24)
--- NOTE | 2025-01-05 00:40 | HISTORY AND PHYSICAL-Residence ---
History & Physical Providers to CC Resident Creating Document: DASRENALDOROSE MARY, MATHEW ~ History of Present Illness Primary Medical Doctor: Dr. Melendez Reason for Admit\Complaint: lower extremity weakness History of Present Illness This is a 89-year-old male longstanding history of chronic back pain,spinal stenosis,CADs s/p CABG, hypertension, abdominal aortic aneurysm presented to ER with difficulty in walking and back pain. The patient reports that in the morning he was ambulating without any difficulty, while sitting in a chair at car wash area he began experiencing tingling sensation in his legs, while driving car on his way back, he suddenly developed numbness in his legs. Upon arriving at home he experienced significant difficulty in walking from the carparking to his home,He describes leg as weak and numb and stating he could barely walk.He also reports a near fall at home but was able to stablize himself by holding the chair, later he used heat pads, which provided him relief but again his legs weakness and numbness increased to point that he could not walk and prompted him to come to ER. He also reports back pain 12/22 and is radiating to his right groin and right calf area. He also reports he had multiple stents placed for his heart and he also got stent for aortic aneurysm repair, he also reports difficulty in breathing after exertion since he had cholecystectomy in september 2024. His Primary care is Dr. Melendez and Radiology Transcriptionist is Dr. Morrison In addition to that he has a chronic back pain history for which he uses hydrocodone, its controlling his pain but he reports pain never goes away completely. Allergies: Coded Allergies: amoxicillin (Verified Allergy, Unknown, RASH, 01/04/25) Home Medications Home Medications Active PROTONIX tablet (Pantoprazole Sodium) 40 Mg Tablet.dr 1 Tab PO DAILY 30 Days Losartan Potassium 50 Mg Tablet 50 Mg PO DAILY Lopressor tablet* (Metoprolol Tartrate) 25 Mg Tablet 25 Mg PO Q12H Hold for SBP below 100mm Hg Hold for Heart Rate below 60. Isosorbide Mononitrate Er (Isosorbide Mononitrate) 30 Mg Tab.er.24h 90 Mg PO DAILY Clopidogrel (Clopidogrel Bisulfate) 75 Mg Tablet 75 Mg PO DAILY Do not stop medication unless instructed by prescriber. Reported Flomax* (Tamsulosin HCl) 0.4 Mg Cap.sr.24h 2 Cap PO DAILY Finasteride 5 Mg Tablet 1 Tab PO DAILY Nitrostat SL* (Nitroglycerin) 0.4 Mg Tablet 1 Tab SL Q5MIN PRN Keren Chewable (Aspirin) 81 Mg Tab.chew 81 Mg PO Past Medical History Past Medical History History of 6-7 stents placement Abdominal aortic aneurysm(Stent placed) He also had a pacemaker. History of Intermittent Diarrhea and Constipation BPH GERD TURP He also reports that his cervical bone was broken and screwed was placed in spine Collar bone fracture,for which he used sling. Shoulder dislocation which was treated manually Past Surgical History Surgical History Comment TURP CABG X5 Cholecystectomy. Pancreatic stone removal. Family History Family History: FH: heart disease (dad) Past Social History Social History Comment He quit smoking in 1987 before that used to smoke pack a day He he occasionally drinks beer about half dozen beer in a month Denies other drug use history. Lives in home with his and retired. ROS All Other Systems: Reviewed and Negative Constitutional: Reports: weakness Eyes: Reports: no symptoms reported ENT: Reports: no symptoms reported Respiratory: Reports: no symptoms reported Cardiovascular: Reports: no symptoms reported Gastrointestinal: Reports: diarrhea, constipated Male Genitalia: Reports: no symptoms reported Neurological: Reports: tingling, left sided weakness, right sided weakness, problems walking Musculoskeletal: Reports: back pain Integumentary: Reports: no symptoms reported Allergic/Immunologic: Reports: no symptoms reported Hematologic/Lymphatic: Reports: no symptoms reported Endocrine: Reports: no symptoms reported Psychiatric: Reports: no symptoms reported Exam Vitals: Vital Signs Date Time Temp Pulse Resp B/P (MAP) Pulse Ox O2 Delivery O2 Flow Rate FiO2 01/04/25 23:08 62 12 154/63 (93) 97 01/04/25 17:22 0 01/04/25 17:05 98.1 General: General: awake, alert oriented to place, time, and person HEENT: No pallor present, no icterus, moist mucous membranes Neck: No masses and tenderness Resp: Unlabored. Lungs clear to auscultation bilaterally. Chest: Normal expansion. Cardiovascular: Regular Rate and rhythm, normal S1 and S2 without murmur, rub or gallop Abdomen: Soft and mildly tender in epigastrium, no organomegaly, no guarding and rigidity, bowel sounds present Upper Extremities: No focal weakness in the upper limbs, power of the muscles 5/5 bilateral upper extremities, normal reflexes bilaterally. Cranial nerves intact Right Lower Extremities: Weakness in lower extremities, power of muscle right lower extremity 3/5, decrease reflexes and numbness, no cyanosis clubbing or edema. Left Lower Extremities: No focal weakness, power of muscles 4/5 right lower extremity, decreased reflexes and numbness, no cyanosis clubbing or edema Skin: Warm and Dry Psych: Normal affect Diagnostic Data Last Recorded Lab Results: 01/04/25204401/04/252044 Advance Care Planning Advanced Care plannin - 30 Minutes (I spent 17 minutes in discussing various resuscitative measures with the patient and he chose to be full code.) Additional Plan This is a 89-year-old male longstanding history of chronic back pain,spinal stenosis,CABG and had 6-7 stents placed, presented to ER with difficulty in walking and back pain. The patient reports that in the morning he was ambulating without any difficulty, while sitting in a chair at car wash area he began experiencing tingling sensation in his legs, while driving car on his way back, he suddenly developed numbness in his legs. Upon arriving at home he experienced significant difficulty in walking from the carparking to his home,He describes leg as weak and numb and stating he could barely walk.He also reports a near fall at home but was able to stablize himself by holding the chair, later he used heat pads, which provided him relief but again his legs weakness and numbness increased to point that he could not walk and prompted him to come to ER. He also reports back pain is radiating to his right groin and right calf area. Plan Lower Extremity Weakness Possible Lumbosacral Radiculopathy/Spinal Stenosis CT Lumbar Spine No definite CT evidence of acute fracture or dislocation of the bony lumbar spine.Prominent disc osteophyte complex at L3-L4 causing at least moderate to severe central canal stenosis and at least mild bilateral neural foraminal narrowing. Consider MRI lumbar spine for further evaluation. Prominent disc osteophyte complex at L4-5 causing at least mild central canal stenosis and at least moderate bilateral neural foraminal narrowing. Grade 1 anterolisthesis of L3 on L4 secondary to facet arthropathy. Follow with MRI Lumbar Spine Consult Neurology and Neurosurgeon Chronic Back Pain Take medication as needed Follow up with MRI Lumbar Spine Coronary Artery Disease s/p CABG x5,Stents Continue aspirin 81 mg and clopidogrel 75 mg daily Continue metoprolol tartate 25 MG PO Q12 Continue Isosorbide mononitrate 30 mg. Continue Nitrogylcerin 0.4 mg tablet Follow up with lipid panel BPH Continue Finasteride 5 mg and tamsulosin 0.4 mg Urinary Incontinence Continue Oxybutynin Chloride 10 mg. GERD Continue Protonix 40 mg 1 Tab daily. DVT Prophylaxis: Heparin Code Status: Full Code Attending Addendum I saw and discussed the patient with the resident Agree with assessment and plan as documented Thank you Date of Service: Jan 05, 2025 Billing Provider: MEL REYES MD, SANJAY, RES Jan 05, 2025 00:40 MEL REYES MD Jan 05, 2025 09:35
[2025-01-05 00:45] LABS: LEUKOCYTE ESTERASE ,URINE NEGATIVE (Neg); NITRITES, URINE NEGATIVE (Neg); OCCULT BLOOD,URINE TRACE-INTACT (Neg)
[2025-01-05 00:56] LABS: UA COLLECTION TYPE CLN CATCH MIDSTREAM
[2025-01-05 00:58] LABS: MUCUS STRANDS FEW /LPF (Neg); SQUAMOUS EPITHELIAL CELL,UR NONE SEEN /LPF (FEW)
[2025-01-05 01:02] LABS: URINE AMPHETAMINE SCREEN NEGATIVE (Neg); URINE BARBITUATE SCREEN NEGATIVE (Neg); URINE BENZODIAZEPINES SCREEN NEGATIVE (Neg); URINE CANNABINOID SCREEN NEGATIVE (Neg); URINE COCAINE SCREEN NEGATIVE (Neg); URINE METHADONE SCREEN NEGATIVE (Neg); URINE OPIATE SCREEN POSITIVE (Neg); URINE PHENCYCLIDINE SCREEN NEGATIVE (Neg)
[2025-01-05] MEDS ORDERED: OMEP20CA16 PO (02:01)
[2025-01-05] MEDS ORDERED: OXYB10TA30 PO (02:02)
[2025-01-05 02:51] LABS: MEAN PLATELET VOLUME 7.8 FL (7.4-10.4); RED CELL DISTRIBUTION WIDTH 14.6 % (11.5-14.5)
[2025-01-05 03:06] LABS: APTT 29 SECONDS (22-32); INR 1.1 INR
[2025-01-05 03:07] LABS: CREATININE 1.00 MG/DL (0.60-1.10); PHOSPHORUS 3.5 MG/DL (2.3-4.5); TOTAL CARBON DIOXIDE 26.2 MMOL/L (24-32); eCRCL 47 ML/MIN; eGFR 71 ML/MIN
[2025-01-05 04:22] VITALS: BP 156/65; PULSE 58; RESP 14; TEMP 97.6; O2SAT 95
[2025-01-05 05:00] VITALS: BP 136/56; PULSE 60; RESP 14; TEMP 97.9; O2SAT 96
[2025-01-05] MEDS: HYDROcodone/acetaminophen 5mg/325mg tablet PO PRN (06:52)
[2025-01-05 08:00] VITALS: RESP 16; O2SAT 96
[2025-01-05] MEDS: OXYBUTYNIN CHLORIDE PO SCH (08:00)
[2025-01-05] MEDS: K and/or MAG REPLACEMENT MC SCH (08:00)
[2025-01-05] MEDS: pantoprazole 40mg Tablet.DR PO SCH (08:14)
[2025-01-05] MEDS: isosorbide mononitrate 30mg tab.SR.24H PO SCH (08:14)
[2025-01-05] MEDS: docusate sod 100mg capsule PO SCH (08:15)
[2025-01-05] MEDS: heparin, porcine 5000 units/ml vial SQ SCH (08:15)
[2025-01-05 10:00] VITALS: BP 136/60; PULSE 70; RESP 15; TEMP 98.6; O2SAT 92
--- NOTE | 2025-01-05 10:43 | RADIOLOGY REPORT ---
CHEST RADIOGRAPH Indication: weakness/pacemaker Technique: Single frontal view of the chest was obtained COMPARISON: DI CHEST,SINGLE VIEW on DOS: 09/26/24, DI CHEST,SINGLE VIEW on DOS: 08/08/24, DI CHEST,SING LE VIEW on DOS: 06/21/24, DI CHEST,SINGLE VIEW on DOS: 03/22/24, DI CHEST,SINGLE VIEW on DOS: 04/05/23 FINDINGS: Lines and Tubes: None. Left anterior chest wall cardiac pacing device. Lungs: Clear Pleura: No effusion. No pneumothorax. Cardiomediastinal contours: Unremarkable status post median sternotomy. Surgical clips noted. Bones: Unremarkable IMPRESSION: 1. No acute disease.
[2025-01-05] MEDS ORDERED: HYDROmorphone inj. 0.5 MG/0.5 ML DISP.SYRIN IV PRN (13:00)
[2025-01-05 18:00] VITALS: BP 132/59; PULSE 57; RESP 12; TEMP 98; O2SAT 95
--- NOTE | 2025-01-05 19:23 | PROGRESS NOTE ---
Daily Progress Note Providers to CC ~ Antibiotic Timeout Antibiotic Ordered?: No Subjective The patient informs me he is unable to ambulate his left lower extremity is slightly weaker than right on exam and the patient informs me he notices his distal left lower extremity is cooler than proximally. He does have on CT scan moderate to severe central canal stenosis L3-L4 level. The patient has a pacemaker we are unable to confirm if it is MRI compatible thus we need to reach out to Dr. Jackie ramirez's office tomorrow. Objective Vital Signs Date Time Temp Pulse Resp B/P (MAP) Pulse Ox O2 Delivery O2 Flow Rate FiO2 01/05/25 18:30 66 01/05/25 18:00 98.0 12 132/59 (83) 95 Room Air 01/04/25 17:22 0 Result Diagram: 01/05/25 0245 01/05/25 0245 Gen. No acute distress alert and oriented 4 Lungs clear to ascultation bilaterally, no wheezes rales or rhonchi appreciated Heart normal sinus rhythm no murmurs rubs or clicks noted Abdomen soft nontender bowel sounds are normoactive Lower extremities no clubbing cyanosis, nor edema appreciated bilaterally Neuro muscle strength on the right lower extremity is 5/5 and is 4+ /5 on the left with slightly colored a temperature distally left lower extremity Coagulation Studies Laboratory Tests Test 01/05/25 02:45 Prothrombin Time 11.3 SECONDS (9.0-12.0) INR International Normalized Ratio 1.1 INR Activated Partial Thromboplast Time 29 SECONDS (22-32) Coagulation Comments Problem\Assessment\Plan This is a 89-year-old male longstanding history of chronic back pain,spinal stenosis,CABG and had 6-7 stents placed, presented to ER with difficulty in walking and back pain. The patient reports that in the morning he was ambulating without any difficulty, while sitting in a chair at car [facility] area he began experiencing tingling sensation in his legs, while driving car on his way back, he suddenly developed numbness in his legs. Upon arriving at home he experienced significant difficulty in walking from the carparking to his home,He describes leg as weak and numb and stating he could barely walk.He also reports a near fall at home but was able to stablize himself by holding the chair, later he used heat pads, which provided him relief but again his legs weakness and numbness increased to point that he could not walk and prompted him to come to ER. He also reports back pain is radiating to his right groin and right calf area. Plan Lower Extremity Weakness Possible Lumbosacral Radiculopathy/Spinal Stenosis CT Lumbar Spine No definite CT evidence of acute fracture or dislocation of the bony lumbar spine.Prominent disc osteophyte complex at L3-L4 causing at least moderate to severe central canal stenosis and at least mild bilateral neural foraminal narrowing. Consider MRI lumbar spine for further evaluation. Prominent disc osteophyte complex at L4-5 causing at least mild central canal stenosis and at least moderate bilateral neural foraminal narrowing. Grade 1 anterolisthesis of L3 on L4 secondary to facet arthropathy. 01/[address] Jackie ramirez's office via ENVIRONMENTAL SAMPLING TECHNICIAN Kristina Deal tomorrow a.m. to see if the patient is pacemaker is MRI compatible- thus MRI Lumbar Spine is ordered but has not been obtained Consult Neurology and Neurosurgeon PT to evaluate and treat Chronic Back Pain Take medication as needed Follow up with MRI Lumbar Spine Coronary Artery Disease s/p CABG x5,Stents Continue aspirin 81 mg and clopidogrel 75 mg daily Continue metoprolol tartate 25 MG PO Q12 Continue Isosorbide mononitrate 30 mg. Continue Nitrogylcerin 0.4 mg tablet Follow up with lipid panel BPH Continue Finasteride 5 mg and tamsulosin 0.4 mg Urinary Incontinence Continue Oxybutynin Chloride 10 mg. GERD Continue Protonix 40 mg 1 Tab daily. DVT Prophylaxis: Heparin Code Status: Full Code Date of Service: Jan 05, 2025 Billing Provider: GRACIELA VILLALTA DO Common Visit Codes: [id number] INP/OBS CARE(HIGH) GRACIELA VILLALTA DO Jan 05, 2025 19:23
[2025-01-05 22:00] VITALS: BP 163/72; PULSE 61; RESP 16; TEMP 98.4; O2SAT 96
[2025-01-06] VITALS (7 sets, daily range): BP systolic 120–205; BP diastolic 45–97; PULSE 54–72; RESP 14–20; TEMP 97.6–98.8; O2SAT 94–96
--- NOTE | 2025-01-06 05:40 | ELECTROCARDIOGRAPH REPORT ---
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
[2025-01-06 06:10] LABS: MEAN PLATELET VOLUME 8.7 FL (7.4-10.4); RED CELL DISTRIBUTION WIDTH 14.7 % (11.5-14.5)
[2025-01-06 06:14] LABS: APTT 29 SECONDS (22-32); INR 1.1 INR
[2025-01-06 06:39] LABS: CREATININE 1.15 MG/DL (0.60-1.10); PHOSPHORUS 3.0 MG/DL (2.3-4.5); TOTAL CARBON DIOXIDE 26.6 MMOL/L (24-32); eCRCL 41 ML/MIN; eGFR 60 ML/MIN
--- NOTE | 2025-01-06 14:40 | PROGRESS NOTE ---
Daily Progress Note Providers to CC ~ Antibiotic Timeout Antibiotic Ordered?: No Subjective Chief complaint none except the back pain which is neither better nor worse Review of systems negative for all 10 systems reviewed Objective Vital Signs Date Time Temp Pulse Resp B/P (MAP) Pulse Ox O2 Delivery O2 Flow Rate FiO2 01/06/25 10:00 98.3 70 20 120/45 (70) 96 Room Air 01/04/25 17:22 0 Result Diagram: 01/06/2552601/06/25526 Patient is alert and oriented x3 no acute distress lying down comfortably speaking in full sentences HEENT normocephalic nontraumatic head CVS first and second heart sounds are regular rate rhythm no murmurs gallops or rubs Respiratory system is clear to auscultate bilaterally Abdomen is soft bowel sounds are positive nontender nondistended Extremities no clubbing cyanosis or edema Musculoskeletal negative straight leg raise test Coagulation Studies Laboratory Tests Test 01/06/25 05:27 Prothrombin Time 10.9 SECONDS (9.0-12.0) INR International Normalized Ratio 1.1 INR Activated Partial Thromboplast Time 29 SECONDS (22-32) Coagulation Comments Problem\Assessment\Plan This is a 89-year-old male longstanding history of chronic back pain,spinal stenosis,CABG and had 6-7 stents placed, presented to ER with difficulty in walking and back pain. The patient reports that in the morning he was ambulating without any difficulty, while sitting in a chair at car [place] area he began experiencing tingling sensation in his legs, while driving car on his way back, he suddenly developed numbness in his legs. Upon arriving at home he experienced significant difficulty in walking from the carparking to his home,He describes leg as weak and numb and stating he could barely walk.He also reports a near fall at home but was able to stablize himself by holding the chair, later he used heat pads, which provided him relief but again his legs weakness and numbness increased to point that he could not walk and prompted him to come to ER. He also reports back pain is radiating to his right groin and right calf area. Plan Lower Extremity Weakness Possible Lumbosacral Radiculopathy/Spinal Stenosis CT Lumbar Spine No definite CT evidence of acute fracture or dislocation of the bony lumbar spine.Prominent disc osteophyte complex at L3-L4 causing at least moderate to severe central canal stenosis and at least mild bilateral neural foraminal narrowing. Consider MRI lumbar spine for further evaluation. Prominent disc osteophyte complex at L4-5 causing at least mild central canal stenosis and at least moderate bilateral neural foraminal narrowing. Grade 1 anterolisthesis of L3 on L4 secondary to facet arthropathy. 01/[address] Jackie ramirez's office via DIRECTOR OF PROFESSIONAL SERVICES Kristina Deal tomorrow a.m. to see if the patient is pacemaker is MRI compatible- thus MRI Lumbar Spine is ordered but has not been obtained Consult Neurology and Neurosurgeon PT to evaluate and treat Chronic Back Pain Take medication as needed Follow up with MRI Lumbar Spine Coronary Artery Disease s/p CABG x5,Stents Continue aspirin 81 mg and clopidogrel 75 mg daily Continue metoprolol tartate 25 MG PO Q12 Continue Isosorbide mononitrate 30 mg. Continue Nitrogylcerin 0.4 mg tablet Follow up with lipid panel BPH Continue Finasteride 5 mg and tamsulosin 0.4 mg Urinary Incontinence Continue Oxybutynin Chloride 10 mg. GERD Continue Protonix 40 mg 1 Tab daily. DVT Prophylaxis: Heparin Code Status: Full Code Date of Service: Jan 06, 2025 Billing Provider: JAZ PÉRZE MD Common Visit Codes: [id number] INP/OBS CARE(HIGH) JAZ PÉREZ MD Jan 06, 2025 14:40
[2025-01-07 05:45] LABS: MEAN PLATELET VOLUME 9.0 FL (7.4-10.4); RED CELL DISTRIBUTION WIDTH 14.7 % (11.5-14.5)
[2025-01-07 05:58] LABS: APTT 29 SECONDS (22-32); INR 1.0 INR
[2025-01-07 06:00] VITALS: BP 127/53; PULSE 59; RESP 15; TEMP 97.6; O2SAT 96
[2025-01-07 06:09] LABS: CREATININE 1.11 MG/DL (0.60-1.10); PHOSPHORUS 3.3 MG/DL (2.3-4.5); TOTAL CARBON DIOXIDE 28.6 MMOL/L (24-32); eCRCL 42 ML/MIN; eGFR 63 ML/MIN
[2025-01-07 10:00] VITALS: BP 102/54; PULSE 60; RESP 11; TEMP 98.3; O2SAT 96
[2025-01-07 11:17] VITALS: RESP 14
--- NOTE | 2025-01-07 11:30 | DISCHARGE SUMMARY ---
Discharge Summary Providers to CC ~ Discharge Summary Admission Diagnosis: Unable to Walk. Hospital Course DATE OF ADMISSION: 01/05/2025 DATE OF DISCHARGE: 01/07/2025 Discharge Diagnosis\Comment: Chronic low back pain with exacerbation BPH Operations\Procedures: None Consultants: None Complications: None Condition on DC: Stable Discharge Summary: History of Present Illness This is a 89-year-old male longstanding history of chronic back pain,spinal stenosis,CADs s/p CABG, hypertension, abdominal aortic aneurysm presented to ER with difficulty in walking and back pain. The patient reports that in the morning he was ambulating without any difficulty, while sitting in a chair at car wash area he began experiencing tingling sensation in his legs, while driving car on his way back, he suddenly developed numbness in his legs. Upon arriving at home he experienced significant difficulty in walking from the carparking to his home,He describes leg as weak and numb and stating he could barely walk.He also reports a near fall at home but was able to stablize himself by holding the chair, later he used heat pads, which provided him relief but again his legs weakness and numbness increased to point that he could not walk and prompted him to come to ER. He also reports back pain 8/10 and is radiating to his right groin and right calf area. He also reports he had multiple stents placed for his heart and he also got stent for aortic aneurysm repair, he also reports difficulty in breathing after exertion since he had cholecystectomy in september 2024. His Primary care is Dr. Melendez and Front End Application Developer is Dr. Morrison In addition to that he has a chronic back pain history for which he uses hydroco done, its controlling his pain but he reports pain never goes away completely. Hospital course patient is a pleasant 89-year-old gentleman who has chronic low back pain. It has been exacerbated and now he is unable to ambulate we did a CT which shows an osteophyte with moderate to severe spinal canal stenosis patient would benefit from an MRI and a consultation with neurosurgeon the neurosurgeon has not responded to my pages Dr. Campbell we do not have anybody on-call I advised the patient to follow up as an outpatient as well as get the MRI done as an outpatient as well prior to which he needs the pacemaker verified. To see if it is MRI compatible or not. Patient agrees with the above care we did start him on physical therapy but he does require additional physical therapy and hence going to a retirement facility his pain is fair control with Dilaudid and [place] added MS Contin 15 mg p.o. b.i.d. to get a better control. *Problems/Diagnosis: (1) Congestive heart failure Status: Acute (2) Back pain Status: Acute (3) Weakness Status: Acute Total Time Spent on D/C: > 30 Minutes Date of Service: Jan 07, 2025 Billing Provider: JAZ PÉREZ MD Common Visit Codes: [id number]-ZRW/[id number] DISCH DAY >30min Problem Qualifiers (1) Back pain: Qualified Codes: M54.42 - Lumbago with sciatica, left side; M54.41 - Lumbago with sciatica, right side; G89.29 - Other chronic pain JAZ PÉREZ MD Jan 07, 2025 11:30
--- NOTE | 2025-01-07 14:10 | RADIOLOGY REPORT ---
EXAM: MR MRI LUMBAR SPINE INDICATION: Lower back pain. Worsening acutely TECHNIQUE: Multiplanar, multisequence MR images of the lumbar spine were obtained without the adminis tration of IV contrast. Truncated protocol. COMPARISON: CT CT LUMBAR SPINE on DOS: 01/04/25 FINDINGS: [ANATOMY]: Five lumbar-type vertebral bodies are present. The most inferior well-formed disc space wi ll be referred to as L5-S1 for purposes of numbering in this report. [VERTEBRAL BODIES]: Grade 1 anterolisthesis L3 over L4. No compression fracture. [SPINAL CANAL]: The conus medullaris is normal in signal and morphology, terminating at the L1-L2 lev el. Moderate to severe spinal canal narrowing at L2-3, L3-4, L4-5 most conspicuous at L4-5. [FACETS]: Mild bilateral multilevel facet arthropathy. [OTHER]: Overall limited evaluation secondary to susceptibility artifact LEVEL BY LEVEL DISCUSSION: [T12-L1]: Unremarkable. [L1-L2]: Unremarkable. [L2-L3]: 2-3 mm bilateral inferior foraminal disc protrusions contributing to mild bilateral foramina l narrowing. Mild facet arthropathy. [L3-L4]: Trace anterolisthesis L3 over L4 with disc uncovering. Facet arthropathy. Moderate to sever e bilateral foraminal narrowing. Spinal canal narrowing down to 5-6 mm [L4-L5]: Severe bilateral foraminal narrowing with contact with the exiting L4 nerve roots. Small po sterior disc osteophyte complex. Severe spinal canal narrowing down to 3 mm [L5-S1]: Broad-based disc protrusions of the lateral recesses contacting the exiting L5 nerve roots c ontributing to severe foraminal narrowing IMPRESSION: 1. Multilevel degenerative change with severe spinal canal narrowing most conspicuous at L4-5.
[2025-01-07] MEDS: diazepam inj 5 MG/ML inj. IV ONE (15:44)
--- NOTE | 2025-01-07 20:35 | RADIOLOGY REPORT ---
EXAM: MR MRI HEAD INDICATION: LEG WEAKNESS TECHNIQUE: Multiplanar, multisequence imaging of the brain without contrast. COMPARISON: None FINDINGS: [PARENCHYMA]: No acute infarct or hemorrhage. No mass effect or herniation. No abnormal susceptibilit y weighted artifact. There are mild periventricular and centrum semiovale T2/FLAIR hyperintensities, which are nonspecific but most likely represent chronic microvascular ischemic change. [VENTRICLES]: No hydrocephalus. [EXTRA-AXIAL SPACES]: No extra-axial fluid collections. [EXTRA-CRANIAL STRUCTURES]: The bony structures are intact. Mild opacification of the right maxillary sinus. Prior bilateral cataract surgery. IMPRESSION: 1. No MR evidence of an acute intracranial abnormality.
== END 2025-01-07 16:48 | DRG 552 ==
LOC: ER 16:59 → ED HOLD 21:36 → ORTHO 4S 01-05 04:05
PROVIDERS: ADMIT Internal Medicine; ATTEND Family Medicine
DX: M48.061 Spinal stenosis, lumbar region without neurogenic claudication (principal); M48.07 Spinal stenosis, lumbosacral region; M54.17 Radiculopathy, lumbosacral region; I25.10 Atherosclerotic heart disease of native coronary artery without angina pectoris; E78.00 Pure hypercholesterolemia, unspecified; G89.29 Other chronic pain; M54.41 Lumbago with sciatica, right side; M54.42 Lumbago with sciatica, left side; M25.78 Osteophyte, vertebrae; K21.9 Gastro-esophageal reflux disease without esophagitis; N40.0 Benign prostatic hyperplasia without lower urinary tract symptoms; I50.9 Heart failure, unspecified; I11.0 Hypertensive heart disease with heart failure; I25.2 Old myocardial infarction; Z88.1 Allergy status to other antibiotic agents; Z79.01 Long term (current) use of anticoagulants; Z79.899 Other long term (current) drug therapy; Z95.1 Presence of aortocoronary bypass graft; Z95.0 Presence of cardiac pacemaker; Z90.49 Acquired absence of other specified parts of digestive tract
CPT/HCPCS: 36415; 70551; 71045; 72131; 72148; 80048; 80053; 80061; 80305; 81001; 83036; 83735; 84100; 85025; 85610; 85730; 87081; 93005; 97116; 97161; 97530; 99285; A6213; G0378; J1171; J1644; J3360